=== PATIENT | male | born 1960 | race African-American/Black ===

== ENCOUNTER → 2017-03-26 | Outpatient (CLI) | payer BC, MEDICARE ==
[~2017-03-26] MED LIST: ACTOPLUS PO; AMITRIPTYLINE H50 MG PO; ASPIRIN PO; ASPIRIN81 MG PO; AVANDIA; BACTRIM DS TABL1 TA2 PO; BENTYL10 MG PO; CELEXA20 MG PO; COREG6.25 MG PO; EPIPEN0.3 MG/0.1 IM; FLAGYL PO; FLEXERIL PO; FLEXERIL10 MG PO; LANSOPRAZOLE30 M2 PO; LANTUS SOLOSTAR3 ML SUBQ; LANTUS100 U/ML SUBQ; LEVAQUIN PO; LISINOPRIL PO; LISINOPRIL20 MG PO; LORTAB 5/500 TA1 TA1 PO; METFORMIN PO; MOBIC PO; NEURONTIN600 MG PO; NITROGLYCERIN0.4 MG SL; NITROGLYGERIN0.4 MG SL; NORCO1 TAB 10/3 PO; NOVOLOG FL100 UNIT/1 SUBQ; NOVOLOG100 U/ML; OPANA10 MG; ORUDIS75 M1 PO; PATIENT'S PHARMACY; PREDNISONE PO; TYLOX1 CAP 5/50 PO; UNKNOWN MEDS; VALTREX PO; VICODIN PO; ZITHROMAX1 G/PKT PO; ZOCOR PO; [UNRECOGNIZED DRUG - REMARK]; [UNRECOGNIZED DRUG - REMARK]
--- NOTE | ~2017-03-26 | MR113 ---
[facility] A Service of [facility] & [facility] RADIOLOGY TEXT RESULTS PATIENT: KEVON SPRINGER LOCATION: [facility] : 60 UNIT #: [id number] AGE: [address]: Ancelmo Marie MD SEX: M ORDER DR: [id number] [address] [address] [id number] O MR#: [id number] Acc #: [id number] NAME: KEVON SPRINGER : 1960 SEX: M STUDY DATE/TIME: 03/26/2017 15:19 UNIT: [facility] ROOM: STUDY DESCRIPTION: MR Lumbar Wo Contrast Attending Physician: Ancelmo Marie M.D. Referring Physician: Ancelmo Marie M.D. Ordering Physician: Ancelmo Marie M.D. Primary Care Physician: Bro Gerard M.D. MRI CENTER REPORT This report is preliminary unless electronic signature is present. EXAM Lumbar spine MRI without HISTORY Low-back pain, chronic, progressively worse since previous MRI 3 years ago. Bilateral leg and hip pain. No known injury or surgery. No history of cancer. MRI of the lumbar spine performed without contrast using routine 1.5-T imaging technique. Comparison study is from 04/03/2014. Wide-bore system utilized. There is severe disc desiccation and loss of intervertebral disc height, L2-L3, L3-L4, and L4-L5 levels, with endplate spondylosis. This has progressed significantly from 2013, especially at the L4-L5 level. There are extensive marrow endplate degenerative changes which are mixed and the type 1 changes are most prominent at the L4-L5 level. Sagittal alignment is essentially normal. The conus medullaris terminates at T12-L1 and is normal. At T12-L1, no significant abnormality. At L1-L2, mild facet hypertrophy. Minor posterior disc bulge more prominent to the left side posterolaterally. No canal stenosis or foraminal impingement. At L2-L3, moderate facet degenerative change bilaterally, moderate ligamentum flavum thickening with moderate concentric disc osteophyte complex and a superimposed broad posterior extrusion. The epidural fat pad is prominent and the combination of findings results in severe canal stenosis. There is moderate to severe right and milder left-sided STS. [facility] A Service of [facility] & [facility] RADIOLOGY TEXT RESULTS PATIENT: KEVON SPRINGER LOCATION: [facility] : 60 UNIT #: [id number] AGE: [address]: Ancelmo Marie MD SEX: M ORDER DR: foraminal narrowing. Disc extrusion component is more prominent into the right lateral recess and right L2-L3 foramen. Findings have progressed significantly since previous. At L3-L4, moderate left, milder right-sided facet degenerative change with ligamentum flavum thickening. Epidural fat pad is prominent. Moderate endplate spondylosis and concentric disc bulge with severe canal stenosis. There is mass effect on the bilateral-lateral recesses. Disc material extends into the foramina, worse to the left than the right, and there is fairly severe left and milder right-sided foraminal narrowing. This is considerably progressed from prior. At L4-L5, there is moderate facet arthritis bilaterally, moderate concentric desiccated disc osteophyte complex, some prominence of the epidural fat pad, and the combination of findings results in fairly severe canal stenosis. This is markedly progressed from previous. Additionally, extrusion extends into the bilateral foramina, and there is severe foraminal compromise bilaterally. At L5-S1, moderate facet degenerative change bilaterally. Some prominence of the epidural fat pad, small broad posterior protrusion, and possibly a small sequestered extrusion, right paramedian location, about 5 mm in dimension, anterior to the right S1 root. Findings also progressed from previous. There is an increase in epidural lipomatosis when comparison is made to previous, also. There is moderate left and mild to moderate right-sided foraminal narrowing. Partly seen is some arthritis in the sacroiliac joints. Partly seen is a large left renal cyst. Some signal abnormality, spinous process adjacent tissues, level of L4-L5, suggests a component of [place] disease. IMPRESSION Marked interval progression of lumbar degenerative disease since the study of 04/03/2014. There is now multilevel severe lumbar canal stenosis including L2-L3, L3-L4, and L4-L5 levels. Disease has progressed at each of these levels, most dramatically at the L4-L5 level. Also multilevel foraminal impingement. Additionally, there is what is probably a small sequestered disc extrusion at L5-S1 in a right paramedian location with some mass effect on the expected location of the right S1 root. Please refer to the [id number] description above. Dictated by... Felipa Peterson M.D. THIS IS AN ELECTRONICALLY VERIFIED REPORT Felipa Peterson M.D. at 03/28/2017 7:39 AM SAC/ligia [facility]. [facility] A Service of [facility] RADIOLOGY TEXT RESULTS PATIENT: KEVON SPRINGER LOCATION: [facility] : 60 UNIT #: [id number] AGE: [address]: Ancelmo Marie MD SEX: M ORDER DR: TD: 03/27/2017 18:22 JOB #: [id number] MRI CENTER REPORT Page 1 of 1
== END | disposition home or self-care (01) ==
LOC: SMRI 09:30
DX: M54.5 Low back pain (principal); M51.36 Other intervertebral disc degeneration, lumbar region; M25.559 Pain in unspecified hip; M79.606 Pain in leg, unspecified
CPT/HCPCS: 72148